=== PATIENT | male | born 1940 | race Caucasian/White ===

== ENCOUNTER 2022-04-23 08:26 | Outpatient (CLI) | payer MEDICARE, BC ==
[~2022-04-23] VITALS: Ht 170.2 cm; Wt 90.3 kg
[~2022-04-23 08:26] MED LIST: METH500T PO
[2022-04-23 09:11] LABS: TOTAL HEMOGLOBIN 14.9 G/dl (14.0-18.0)
[2022-04-23] MEDS ORDERED: albuterol 2.5 MG/3 ML nebule NEB ONE (09:45)
== END 2022-04-23 23:59 | disposition home or self-care (01) ==
LOC: RT 08:26
PROVIDERS: ATTEND Specialist
DX: J44.9 Chronic obstructive pulmonary disease, unspecified (principal); Z79.899 Other long term (current) drug therapy
CPT/HCPCS: 85018; 94060; 94727; 94729; 94760